=== PATIENT | male | born 1980 | race Caucasian/White ===

== ENCOUNTER 2021-03-06 02:58 | Day surgery (SDC) | payer OTHER | END 2021-03-06 23:54 | disposition home or self-care (01) | LOC: WOUND 02:58 | DX: L97.319 Non-pressure chronic ulcer of right ankle with unspecified severity (principal); L03.115 Cellulitis of right lower limb; I83.91 Asymptomatic varicose veins of right lower extremity; I87.8 Other specified disorders of veins; L25.9 Unspecified contact dermatitis, unspecified cause; I87.2 Venous insufficiency (chronic) (peripheral); I73.9 Peripheral vascular disease, unspecified | CPT/HCPCS: A9270 ==

== ENCOUNTER 2021-03-08 02:16 | Day surgery (SDC) | payer OTHER | END 2021-03-08 23:02 | disposition home or self-care (01) | LOC: WOUND 02:16 | DX: S91.001A Unspecified open wound, right ankle, initial encounter (principal); X58.XXXA Exposure to other specified factors, initial encounter; L03.115 Cellulitis of right lower limb; I83.91 Asymptomatic varicose veins of right lower extremity; I87.8 Other specified disorders of veins; I73.9 Peripheral vascular disease, unspecified; L25.9 Unspecified contact dermatitis, unspecified cause; I87.2 Venous insufficiency (chronic) (peripheral) ==

== ENCOUNTER 2021-03-13 02:03 | Day surgery (SDC) | payer OTHER | END 2021-03-13 23:16 | disposition home or self-care (01) | LOC: WOUND 02:03 | DX: I83.213 Varicose veins of right lower extremity with both ulcer of ankle and inflammation (principal); L97.312 Non-pressure chronic ulcer of right ankle with fat layer exposed; L03.115 Cellulitis of right lower limb; I87.8 Other specified disorders of veins; L25.9 Unspecified contact dermatitis, unspecified cause; I73.9 Peripheral vascular disease, unspecified | CPT/HCPCS: A9270 ==

== ENCOUNTER 2021-03-17 08:00 | Day surgery (SDC) | payer OTHER | END 2021-03-17 23:59 | disposition home or self-care (01) | LOC: WOUND 08:00 | DX: L03.115 Cellulitis of right lower limb (principal); I83.91 Asymptomatic varicose veins of right lower extremity; I87.8 Other specified disorders of veins; L25.9 Unspecified contact dermatitis, unspecified cause; I87.2 Venous insufficiency (chronic) (peripheral); I73.9 Peripheral vascular disease, unspecified ==

== ENCOUNTER 2021-03-24 02:34 | Day surgery (SDC) | payer OTHER | END 2021-03-24 23:27 | disposition home or self-care (01) | LOC: WOUND 02:34 | DX: L97.312 Non-pressure chronic ulcer of right ankle with fat layer exposed (principal); L03.115 Cellulitis of right lower limb; I83.91 Asymptomatic varicose veins of right lower extremity; L25.9 Unspecified contact dermatitis, unspecified cause; I87.2 Venous insufficiency (chronic) (peripheral); I73.9 Peripheral vascular disease, unspecified | CPT/HCPCS: A9270 ==

== ENCOUNTER → 2024-06-25 | Outpatient (CLI) | payer OTHER | LOC: LAB SHORT 15:35 → LAB 15:35 | DX: L97.921 Non-pressure chronic ulcer of unspecified part of left lower leg limited to breakdown of skin (principal) | CPT/HCPCS: 87070; 87077; 87186; 87205 ==

== ENCOUNTER 2024-06-26 05:01 | Day surgery (SDC) | payer OTHER ==
[2024-06-26] MEDS ORDERED: Lidocaine HCl 4% Cream 5 GM ONE (12:57)
== END 2024-06-28 05:28 | disposition home or self-care (01) ==
LOC: WOUND 05:01
DX: I87.313 Chronic venous hypertension (idiopathic) with ulcer of bilateral lower extremity (principal); L97.322 Non-pressure chronic ulcer of left ankle with fat layer exposed; L97.312 Non-pressure chronic ulcer of right ankle with fat layer exposed; L97.822 Non-pressure chronic ulcer of other part of left lower leg with fat layer exposed; I87.2 Venous insufficiency (chronic) (peripheral); I73.9 Peripheral vascular disease, unspecified
CPT/HCPCS: A9270; G0463

== ENCOUNTER 2024-07-02 01:35 | Day surgery (SDC) | payer OTHER ==
[2024-07-02] MEDS ORDERED: Lidocaine HCl 4% Cream 5 GM ONE (09:48)
== END 2024-07-02 23:00 | disposition home or self-care (01) ==
LOC: WOUND 01:35
DX: I87.313 Chronic venous hypertension (idiopathic) with ulcer of bilateral lower extremity (principal); L97.322 Non-pressure chronic ulcer of left ankle with fat layer exposed; L97.312 Non-pressure chronic ulcer of right ankle with fat layer exposed; L97.822 Non-pressure chronic ulcer of other part of left lower leg with fat layer exposed; I87.2 Venous insufficiency (chronic) (peripheral)
CPT/HCPCS: A9270

== ENCOUNTER 2024-07-09 05:43 | Day surgery (SDC) | payer OTHER ==
[2024-07-09] MEDS ORDERED: Lidocaine HCl 4% Cream 5 GM ONE (14:57)
== END 2024-07-09 23:00 | disposition home or self-care (01) ==
LOC: WOUND 05:43
DX: I87.313 Chronic venous hypertension (idiopathic) with ulcer of bilateral lower extremity (principal); L97.322 Non-pressure chronic ulcer of left ankle with fat layer exposed; L97.312 Non-pressure chronic ulcer of right ankle with fat layer exposed; L97.822 Non-pressure chronic ulcer of other part of left lower leg with fat layer exposed; I87.2 Venous insufficiency (chronic) (peripheral); I73.9 Peripheral vascular disease, unspecified
CPT/HCPCS: A9270

== ENCOUNTER 2024-07-13 05:07 | Day surgery (SDC) | payer OTHER ==
[2024-07-13] MEDS ORDERED: Lidocaine HCl 4% Cream 5 GM ONE (08:50)
== END 2024-07-13 23:14 | disposition home or self-care (01) ==
LOC: WOUND 05:07
DX: I87.313 Chronic venous hypertension (idiopathic) with ulcer of bilateral lower extremity (principal); L97.322 Non-pressure chronic ulcer of left ankle with fat layer exposed; L97.312 Non-pressure chronic ulcer of right ankle with fat layer exposed; L97.822 Non-pressure chronic ulcer of other part of left lower leg with fat layer exposed; I87.2 Venous insufficiency (chronic) (peripheral); I73.9 Peripheral vascular disease, unspecified
CPT/HCPCS: A9270

== ENCOUNTER 2024-07-21 01:24 | Day surgery (SDC) | payer OTHER ==
[2024-07-21] MEDS ORDERED: Lidocaine HCl 4% Cream 5 GM ONE (10:19)
== END 2024-07-21 23:00 | disposition home or self-care (01) ==
LOC: WOUND 01:24
DX: I87.313 Chronic venous hypertension (idiopathic) with ulcer of bilateral lower extremity (principal); L97.822 Non-pressure chronic ulcer of other part of left lower leg with fat layer exposed; L97.312 Non-pressure chronic ulcer of right ankle with fat layer exposed; L97.329 Non-pressure chronic ulcer of left ankle with unspecified severity; I87.2 Venous insufficiency (chronic) (peripheral); I73.9 Peripheral vascular disease, unspecified
CPT/HCPCS: A9270

== ENCOUNTER 2024-07-28 05:58 | Day surgery (SDC) | payer OTHER ==
[2024-07-28] MEDS ORDERED: Lidocaine HCl 4% Cream 5 GM ONE (08:40)
== END 2024-07-28 23:00 | disposition home or self-care (01) ==
LOC: WOUND 05:58
DX: I87.313 Chronic venous hypertension (idiopathic) with ulcer of bilateral lower extremity (principal); L97.312 Non-pressure chronic ulcer of right ankle with fat layer exposed; L97.822 Non-pressure chronic ulcer of other part of left lower leg with fat layer exposed; L97.321 Non-pressure chronic ulcer of left ankle limited to breakdown of skin; I87.2 Venous insufficiency (chronic) (peripheral); I73.9 Peripheral vascular disease, unspecified
CPT/HCPCS: A9270

== ENCOUNTER 2024-08-04 08:20 | Day surgery (SDC) | payer OTHER | END 2024-08-04 23:00 | disposition home or self-care (01) | LOC: WOUND 08:20 | DX: I87.313 Chronic venous hypertension (idiopathic) with ulcer of bilateral lower extremity (principal); L97.322 Non-pressure chronic ulcer of left ankle with fat layer exposed; L97.312 Non-pressure chronic ulcer of right ankle with fat layer exposed; I87.2 Venous insufficiency (chronic) (peripheral); I73.9 Peripheral vascular disease, unspecified ==

== ENCOUNTER 2024-08-13 05:19 | Day surgery (SDC) | payer OTHER ==
[2024-08-13] MEDS ORDERED: Lidocaine HCl 4% Cream 5 GM ONE (11:13)
== END 2024-08-13 23:00 ==
LOC: WOUND 05:19
DX: I87.313 Chronic venous hypertension (idiopathic) with ulcer of bilateral lower extremity (principal); L97.322 Non-pressure chronic ulcer of left ankle with fat layer exposed; L97.312 Non-pressure chronic ulcer of right ankle with fat layer exposed; L97.922 Non-pressure chronic ulcer of unspecified part of left lower leg with fat layer exposed; L97.812 Non-pressure chronic ulcer of other part of right lower leg with fat layer exposed; I87.2 Venous insufficiency (chronic) (peripheral); I73.9 Peripheral vascular disease, unspecified
CPT/HCPCS: A9270

== ENCOUNTER 2024-08-20 01:34 | Day surgery (SDC) | payer OTHER ==
[2024-08-20] MEDS ORDERED: Lidocaine HCl 4% Cream 5 GM ONE (10:21)
== END 2024-08-20 23:00 | disposition home or self-care (01) ==
LOC: WOUND 01:34
DX: I87.313 Chronic venous hypertension (idiopathic) with ulcer of bilateral lower extremity (principal); L97.312 Non-pressure chronic ulcer of right ankle with fat layer exposed; L97.322 Non-pressure chronic ulcer of left ankle with fat layer exposed; I87.2 Venous insufficiency (chronic) (peripheral); I73.9 Peripheral vascular disease, unspecified
CPT/HCPCS: A9270

== ENCOUNTER 2024-08-27 02:14 | Day surgery (SDC) | payer OTHER ==
[2024-08-27] MEDS ORDERED: Lidocaine HCl 4% Cream 5 GM ONE (10:08)
[2024-08-27] MEDS ORDERED: Triamcinolone Acet 0.1% Cream 15 gm ONE (10:36)
== END 2024-08-27 23:00 | disposition home or self-care (01) ==
LOC: WOUND 02:14
DX: I87.313 Chronic venous hypertension (idiopathic) with ulcer of bilateral lower extremity (principal); L97.322 Non-pressure chronic ulcer of left ankle with fat layer exposed; L97.312 Non-pressure chronic ulcer of right ankle with fat layer exposed; I87.2 Venous insufficiency (chronic) (peripheral); I73.9 Peripheral vascular disease, unspecified
CPT/HCPCS: A6196; A9270

== ENCOUNTER 2024-09-10 02:26 | Day surgery (SDC) | payer OTHER | END 2024-09-10 23:00 | disposition home or self-care (01) | LOC: WOUND 02:26 | DX: L97.322 Non-pressure chronic ulcer of left ankle with fat layer exposed (principal); L97.319 Non-pressure chronic ulcer of right ankle with unspecified severity; I87.2 Venous insufficiency (chronic) (peripheral); I73.9 Peripheral vascular disease, unspecified | CPT/HCPCS: G0463 ==